=== PATIENT | female | born 2000 | race African-American/Black ===

== ENCOUNTER 2022-11-17 12:32 | Emergency (ER) | payer OTHER ==
[~2022-11-17] VITALS: Ht 165.1 cm; Wt 99.8 kg
[2022-11-17 13:23] LABS: COLOR,URINE YELLOW (YELLOW); KETONES,URINE 2+ (NEGATIVE); LEUKOCYTE ESTERASE ,URINE SMALL (NEGATIVE); NITRITE,URINE POSITIVE (NEGATIVE); PROTEIN,URINE DIPSTICK >=300 (NEGATIVE); URINE UROBILINOGEN 0.2 mg/dL (0.2 - 1)
[2022-11-17 13:24] LABS: BACTERIA,URINE MANY /HPF; CLARITY,URINE TURBID (CLEAR); EPITHELIAL CELLS,URINE FEW /LPF; RBC,URINE >50 /HPF (0-5); WBC,URINE (MAN) >50 /HPF (0-5)
[2022-11-17] MEDS ORDERED: ONDANSETRON HCL INJ 2MG/ML 2ML 2 MG/ML VIAL IV PRN (13:30)
[2022-11-17] MEDS ORDERED: SODIUM CHLORIDE 0.9% 1000ML 1,000 ML IV ONE (13:30)
[2022-11-17 13:49] LABS: BASOPHILS % 0.2 % (0.0-1.0); EOSINOPHILS % 0.2 % (0.0-6.0); LYMPHOCYTES # (AUTO) 1.8 (1.0-3.2); LYMPHOCYTES % 15.4 % (18.0-39.1); MEAN CORPUSCULAR HEMOGLOBIN 28.6 pg (28-32); MEAN CORPUSCULAR HGB CONC 33.3 g/dL (31-35); MEAN CORPUSCULAR VOLUME 85.9 fL (81-99); MONOCYTES # (AUTO) 0.7 (0.2-0.8); MONOCYTES % 5.4 % (4.4-11.3); NEUTROPHILS # (AUTO) 9.4 (2.1-6.9); NEUTROPHILS % 78.5 % (38.7-80.0); PLATELET COUNT 252 x10e3/uL (140-360); RED BLOOD COUNT 4.19 x10e6/uL (3.6-5.1); RED CELL DISTRIBUTION WIDTH 13.5 % (11.7-14.4)
[2022-11-17] MEDS ORDERED: CEPHALEXIN500 MG PO (15:23)
[2022-11-17] MEDS ORDERED: ONDANSETRON ODT4 MG PO (15:23)
[2022-11-17 15:33] VITALS: BP 122/67
== END 2022-11-17 15:39 | disposition home or self-care (01) ==
LOC: ER 12:36
DX: O20.9 Hemorrhage in early pregnancy, unspecified (principal); O23.11 Infections of bladder in pregnancy, first trimester
CPT/HCPCS: 36415; 76801; 81001; 81025; 84702; 85025; 87086; 87186; 99284; J0696; J2405; J7030

== ENCOUNTER 2024-06-21 14:18 | Emergency (ER) | payer OTHER ==
[~2024-06-21] VITALS: Ht 165.1 cm; Wt 99.8 kg
[~2024-06-21 14:18] MED LIST: CEFDINIR300 MG PO; CEPHALEXIN500 MG PO; ONDANSETRON ODT4 MG PO
[2024-06-21 14:27] VITALS: TEMP 97.9
[2024-06-21 14:32] VITALS: PULSE 82; RESP 16; O2SAT 95
[2024-06-21 14:53] LABS: INFLUENZA A AG NEGATIVE (NEGATIVE); INFLUENZA B AG NEGATIVE (NEGATIVE)
[2024-06-21 14:54] LABS: CORONAVIRUS COVID-19 AG NEGATIVE (NEGATIVE)
[2024-06-21] MEDS ORDERED: MUCINEX DM ER1 EACH PO (15:14)
== END 2024-06-21 15:20 | disposition home or self-care (01) ==
LOC: ER 14:24
DX: R05.9 Cough, unspecified (principal); J06.9 Acute upper respiratory infection, unspecified; R07.89 Other chest pain
CPT/HCPCS: 71046; 93005; 99283